=== PATIENT | male | born 1945 | race Caucasian/White ===

== ENCOUNTER → 2020-09-02 08:54 | Outpatient (BNVA) | payer OTHER, SELFPAY | PROVIDERS: Visit Provider Urology | DX: N40.1 Benign prostatic hyperplasia with lower urinary tract symptoms (principal); N13.8 Other obstructive and reflux uropathy; R35.1 Nocturia | CPT/HCPCS: 51798; 81002 ==

== ENCOUNTER → 2021-09-08 08:48 | Outpatient (BNVA) | payer OTHER, SELFPAY | PROVIDERS: PCP Internal Medicine; Visit Provider Urology | DX: N40.1 Benign prostatic hyperplasia with lower urinary tract symptoms (principal); N13.8 Other obstructive and reflux uropathy; R35.1 Nocturia | CPT/HCPCS: 51798 ==

== ENCOUNTER → 2022-09-11 09:39 | Outpatient (BNVA) | payer OTHER, SELFPAY | PROVIDERS: PCP Internal Medicine; Visit Provider Urology | DX: N40.1 Benign prostatic hyperplasia with lower urinary tract symptoms (principal); N13.8 Other obstructive and reflux uropathy; N52.9 Male erectile dysfunction, unspecified | CPT/HCPCS: 51798 ==

== ENCOUNTER 2024-01-17 11:09 | Outpatient (REF) | payer OTHER, SELFPAY | END 2024-01-17 11:10 | disposition home or self-care (01) | LOC: HO.HMGCLDS 11:09 | PROVIDERS: PCP Internal Medicine; Visit Provider Urology | DX: N40.1 Benign prostatic hyperplasia with lower urinary tract symptoms (principal); N13.8 Other obstructive and reflux uropathy; Z12.5 Encounter for screening for malignant neoplasm of prostate | CPT/HCPCS: 36415; 84153 ==

== ENCOUNTER 2024-02-07 09:29 | Outpatient (AMB) | payer OTHER, SELFPAY ==
--- NOTE | 2024-02-07 09:42 | A.OFFVIS_ITS ---
Intake Visit Reasons: PSA/PVR Follow Up(Set) Intake Note: Patient is Present for PVR/ Urology Med: Sildenafil, Terazosin Antibiotic Allergy:None Blood Thinner: None Last PVR: 0 Todays PVR: 33 Allergies No Known Allergies Allergy (Verified 02/07/24 09:46) HPI Comments Details: Gregory is a pleasant male. He is a patient of Dr. Devries. He is seen for the following urologic conditions - lower urinary tract symptoms - erectile dysfunction Stable bladder emptying - nocturia x1 PVR 33 Viagra still effective Refills provided Still working Did encourage him to elevate his legs in the afternoon for 45 minutes Prostate/Bladder: Medications effective On maximum amount of terazosin - with nocturia 2-3 times - 10 mg PSA remains low Benign prostatic hyperplasia (BPH) was diagnosed several , years ago. Current symptoms include incomplete emptying, nocturia, weak flow. Severity of the symptoms that is mild. Aggravating factors include fluid intake. Alleviating factors include avoiding alcohol, alpha blockers. Associated symptoms include weak flow. Current medication(s) include terazosin 10 mg. Recent labs included a PSA (prostate-specific antigen) 02/12 0.7, 07/18 0.4, 09/20 0.9 Investigative studies included a uroflow in the past Erectile dysfunction Responsive to on demand Viagra [facility] Social History Alcohol intake: current Alcohol intake frequency: 0-2 drinks per day Alcohol type: hard liquor Patient Tobacco Use Status: Never used Tobacco Review of Systems Const Denies chills and Denies fever(s) Card Reports no additional complaints and Denies syncope Resp Denies cough GI Denies abdominal pain and Denies heartburn Reports as per HPI and Denies change in libido Neuro Denies syncope Psych Denies change in libido Endo Denies change in libido Physical Exam Const General: cooperative, healthy appearing, comfortable and no acute distress Orientation/consciousness: patient oriented x3 HEENT Face and sinus: Yes normal facial exam Mouth: moist mucous membranes Neck Neck: Yes normal visual inspection, Yes full ROM and Yes trachea midline Chest Chest palpation & inspection: normal inspection of the chest Resp Effort & Inspection: normal respiratory effort, able to speak in complete sentences and no respiratory distress GI Inspection: Yes normal to inspection Back/Spine/Pelvis Cervical Spine: normal cervical lordosis Thoracic/Lumbar Spine: thoracic and lumbar spine normal to inspection Skin General skin exam: no rashes or lesions noted Neuro General: patient oriented x3, gait normal, tone normal and moves all extremities Extrem General: Yes normal to inspection and Yes capillary refill normal Office Procedures Post Void Residual Post Residual Void Post Void Residual (PVR): 33 [id number] Void Residual by ultrasound Assessment & Plan Assessment & Plan (1) Nocturia more than twice per night: Code(s): R35.1 - Nocturia Category: Medical (2) Erectile dysfunction: Code(s): N52.9 - Male erectile dysfunction, unspecified Category: Medical Plan Twelve month follow-up PVR Orders: Orders AMB Post Void Residual by ultrasound Today R35.1 - Nocturia Medications: Changed From terazosin 10 mg PO DAILY 30 days 30 caps 0RF N13.8 - Other obstructive and reflux uropathy, N40.1 - Benign prostatic hyperplasia with lower urinary tract symptoms To terazosin 10 mg PO DAILY 90 days 90 caps 3RF N13.8 - Other obstructive and reflux uropathy, N40.1 - Benign prostatic hyperplasia with lower urinary tract symptoms Refilled sildenafil administer 60 minutes before intended activity 100 mg PO DAILY 30 days PRN 30 tabs 1RF sexual activity N52.9 - Male erectile dysfunction, unspecified Patient Instructions: Imaging studies, laboratory and physical exam results were discussed and reviewed in detail. No major barriers to patient understanding were identified. An opportunity to ask questions regarding the treatment plan was provided. All questions were answered. The patient expressed understanding and agreement with the above treatment plan. The patient is aware they should contact our office by phone for worsening of their current condition or the appearance of new urologic symptoms. Compliance is encouraged with any medications and followup testing that is ordered. It is a privilege to participate in the urologic care of your patient. If you have any questions or concerns regarding treatment for the above conditions, or other urologic issues, please do not hesitate to contact me. The office telephone contact is [phone]. This note is constructed using voice recognition software. While every effort has been made to ensure accuracy solar applications development engineer errors may have been included. Yours sincerely, Dr Stephen Gallegos MD, [facility] - Urology Providers of Expert, Compassionate Care for the Genitourinary System Coding Level of Care Code Est Pt Level 4 (81051) Diagnoses Nocturia more than twice per night R35.1 Erectile dysfunction N52.9 CPT Codes Post Residual Void - PVR CPT Code: 29488-Gcho Void Residual by ultrasound ([id number])
== END 2024-02-07 10:06 | disposition home or self-care (01) ==
PROVIDERS: PCP Internal Medicine; Visit Provider Urology
DX: R35.1 Nocturia (principal); N52.9 Male erectile dysfunction, unspecified
CPT/HCPCS: 99213

== ENCOUNTER → 2024-02-07 09:29 | Outpatient (BNVA) | payer OTHER, SELFPAY | PROVIDERS: PCP Internal Medicine; Visit Provider Urology | DX: N40.1 Benign prostatic hyperplasia with lower urinary tract symptoms (principal); N13.8 Other obstructive and reflux uropathy; R35.1 Nocturia; N52.9 Male erectile dysfunction, unspecified | CPT/HCPCS: 51798 ==